=== PATIENT | female | born 1985 | race Caucasian/White ===

== ENCOUNTER 2018-05-26 15:19 | Outpatient (CLI) | payer OTHER ==
[~2018-05-26] VITALS: Ht 167.6 cm; Wt 65.9 kg
[2018-05-26 15:27] VITALS: BP 132/87
[2018-05-26] MEDS ORDERED: PREN1TAB60 PO (16:22)
[2018-05-26] MEDS ORDERED: RANI50VI PO (16:22)
== END 2018-05-26 17:20 | disposition home or self-care (01) ==
LOC: LDOP 15:19
PROVIDERS: ATTEND Obstetrics & Gynecology
DX: O26.893 Other specified pregnancy related conditions, third trimester (principal); R10.9 Unspecified abdominal pain; Z3A.34 34 weeks gestation of pregnancy
CPT/HCPCS: 59025; 99201; G0463

== ENCOUNTER 2018-06-17 06:08 | Observation (INO) | payer OTHER ==
[~2018-06-17] VITALS: Ht 167.6 cm; Wt 67.2 kg
[~2018-06-17 06:08] MED LIST: PREN1TAB60 PO; RANI50VI PO
[2018-06-17] MEDS ORDERED: TERBUTALINE 1 MG/ML, 1ML SQ ONE (06:30)
[2018-06-17 06:40] VITALS: BP 114/78
[2018-06-17 06:52] LABS: BASOPHILS # (AUTO) 0.03 x10^3/uL (0-0.1); BASOPHILS % (AUTO) 0 % (0-1); EOSINOPHILS # (AUTO) 0.17 x10^3/uL (0-0.4); EOSINOPHILS % (AUTO) 2 % (1-7); LYMPHOCYTES # (AUTO) 1.21 x10^3/uL (1-3.4); LYMPHOCYTES % (AUTO) 13 % (22-44); MD NO; MEAN CORPUSCULAR HEMOGLOBIN 32.4 pg (27.0-34.8); MEAN CORPUSCULAR HGB CONC 33.7 g/dL (32.4-35.8); MEAN CORPUSCULAR VOLUME 96.1 fL (80-100); MEAN PLATELET VOLUME 8.8 fL (7.4-10.4); MONOCYTES # (AUTO) 0.59 x10^3/uL (0.2-0.8); MONOCYTES % (AUTO) 6 % (2-9); NEUTROPHILS # (AUTO) 7.48 x10^3/uL (1.8-6.8); NEUTROPHILS % (AUTO) 79 % (42-75); PLATELET COUNT 262 x10^3/uL (130-400); RED BLOOD COUNT 3.88 x10^6/uL (3.82-5.3); RED CELL DISTRIBUTION WIDTH 12.9 % (9.6-15.2)
[2018-06-17] MEDS ORDERED: TERBUTALINE 1 MG/ML, 1ML ONE (07:07)
[2018-06-17] MEDS: LACTATED RINGERS 1,000 ML IV SCH ×2 (08:56→08:58)
== END 2018-06-17 08:45 | disposition home or self-care (01) ==
LOC: LDIP 06:08 → INTOOBSV 06:27 → UNDOADMOB 06:27
PROVIDERS: ADMIT Obstetrics & Gynecology Maternal & Fetal Medicine; ATTEND Obstetrics & Gynecology Maternal & Fetal Medicine
DX: O32.1XX0 Maternal care for breech presentation, not applicable or unspecified (principal); Z3A.37 37 weeks gestation of pregnancy
CPT/HCPCS: 36415; 59025; 59412; 85025; 86850; 86900; 96372; G0378; J3105; J7120; 96360; 96361

== ENCOUNTER 2018-06-30 05:36 | Inpatient (IN) | payer OTHER ==
[~2018-06-30] VITALS: Ht 167.6 cm; Wt 68.5 kg
[2018-06-30] MEDS ORDERED: SODIUM CITRATE/CITRIC ACID 15 ML UDC ONE (05:37)
[2018-06-30] MEDS ORDERED: NEWBORN KIT ONE (05:37)
[2018-06-30] MEDS ORDERED: METOCLOPRAMIDE 5 MG/ML, 2ML ONE (05:38)
[2018-06-30] MEDS ORDERED: OXYTOCIN 30U/ 0.9% NaCL 500ML 500 ML ONE (05:38)
[2018-06-30] MEDS ORDERED: SODIUM CITRATE/CITRIC ACID 15 ML UDC PO ONE (06:00)
[2018-06-30] MEDS ORDERED: METOCLOPRAMIDE 5 MG/ML, 2ML IV ONE (06:00)
[2018-06-30] MEDS ORDERED: LACTATED RINGERS 1,000 ML IVBOLUS ONE (06:00)
[2018-06-30 06:13] LABS: BASOPHILS # (AUTO) 0.04 x10^3/uL (0-0.1); BASOPHILS % (AUTO) 1 % (0-1); EOSINOPHILS # (AUTO) 0.13 x10^3/uL (0-0.4); EOSINOPHILS % (AUTO) 2 % (1-7); LYMPHOCYTES # (AUTO) 1.38 x10^3/uL (1-3.4); LYMPHOCYTES % (AUTO) 17 % (22-44); MD NO; MEAN CORPUSCULAR HEMOGLOBIN 33.5 pg (27.0-34.8); MEAN CORPUSCULAR HGB CONC 34.8 g/dL (32.4-35.8); MEAN CORPUSCULAR VOLUME 96.3 fL (80-100); MEAN PLATELET VOLUME 9.2 fL (7.4-10.4); MONOCYTES % (AUTO) 6 % (2-9); NEUTROPHILS # (AUTO) 6.07 x10^3/uL (1.8-6.8); NEUTROPHILS % (AUTO) 75 % (42-75); PLATELET COUNT 234 x10^3/uL (130-400); RED BLOOD COUNT 4.08 x10^6/uL (3.82-5.3); RED CELL DISTRIBUTION WIDTH 13.1 % (9.6-15.2)
[2018-06-30] MEDS ORDERED: HYDROmorphone 2 MG/ML, 1ML ONE ×4 (07:22→22:34)
[2018-06-30] MEDS ORDERED: CEFAZOLIN 1,000 MG ONE (07:22)
[2018-06-30] MEDS ORDERED: FENTANYL PF 100 MCG/2ML ONE (07:22)
[2018-06-30] MEDS ORDERED: ONDANSETRON 2MG/ML, 2ML ONE (07:22)
[2018-06-30] MEDS ORDERED: OXYTOCIN 10 UNITS/ML, 1ML ONE (07:22)
[2018-06-30] MEDS: LACTATED RINGERS 1,000 ML IV SCH ×6 (07:34→23:20)
[2018-06-30] MEDS ORDERED: OXYTOCIN 30U/ 0.9% NaCL 500ML 500 ML IV SCH (07:34)
[2018-06-30] MEDS ORDERED: METHYLERGONOVINE 0.2 MG/ML IM PRN (08:00)
[2018-06-30] MEDS ORDERED: IBUPROFEN 600 MG TABLET PO PRN (08:00)
[2018-06-30] MEDS ORDERED: OXYcodone/APAP 5/325MG TABLET PO PRN (08:00)
[2018-06-30] MEDS ORDERED: morphine SULFATE 10 MG/ML, 1ML IM PRN (08:00)
[2018-06-30] MEDS ORDERED: CARBOPROST TROMETHAMINE 250 MCG/ML, 1ML IM PRN (08:00)
[2018-06-30] MEDS ORDERED: ONDANSETRON 2MG/ML, 2ML IV PRN (08:00)
[2018-06-30] MEDS ORDERED: MISOPROSTOL 200 MCG TABLET PR PRN (08:00)
[2018-06-30] MEDS ORDERED: MORPHINE SULFATE 4 MG/ML, 1ML IVPush PRN ×2 (08:00→13:30)
[2018-06-30] MEDS ORDERED: MISOPROSTOL 200 MCG TABLET ONE (08:21)
[2018-06-30] MEDS: PRENATAL VIT/IRON/FA 1 EACH TABLET PO SCH (09:00)
[2018-06-30] MEDS: OXYTOCIN 30U/ 0.9% NaCL 500ML 500 ML IV SCH ×2 (10:26→19:20)
[2018-06-30] MEDS ORDERED: DIPH,PERTUSS(ACELL),TET VAC/PF NC IM-VACC PRN (10:30)
[2018-06-30] MEDS ORDERED: MEASLES,MUMPS&RUBELLA VACC/PF 0.5 ML SQ-VACC PRN (10:30)
[2018-06-30] MEDS ORDERED: ACETAMINOPHEN 325 MG TABLET PO PRN ×2 (10:30)
[2018-06-30 10:45] VITALS: BP 137/87
[2018-06-30] MEDS: OXYcodone/APAP 5/325MG TABLET PO PRN ×3 (11:29→20:48)
[2018-06-30] MEDS ORDERED: MORPHINE SULFATE 4 MG/ML, 1ML ONE (13:09)
[2018-06-30] MEDS: KETOROLAC 30 MG/1 ML IV PRN ×2 (14:41→20:48)
[2018-06-30 15:43] VITALS: BP 125/85
[2018-06-30] MEDS: HYDROmorphone 2 MG/ML, 1ML IVPush PRN ×4 (15:58→22:41)
[2018-06-30 16:10] LABS: BASOPHILS # (AUTO) 0.04 x10^3/uL (0-0.1); BASOPHILS % (AUTO) 0 % (0-1); EOSINOPHILS # (AUTO) 0.08 x10^3/uL (0-0.4); EOSINOPHILS % (AUTO) 1 % (1-7); LYMPHOCYTES # (AUTO) 1.01 x10^3/uL (1-3.4); LYMPHOCYTES % (AUTO) 10 % (22-44); MD NO; MEAN CORPUSCULAR HEMOGLOBIN 32.7 pg (27.0-34.8); MEAN CORPUSCULAR HGB CONC 33.9 g/dL (32.4-35.8); MEAN CORPUSCULAR VOLUME 96.3 fL (80-100); MEAN PLATELET VOLUME 9.4 fL (7.4-10.4); MONOCYTES # (AUTO) 0.43 x10^3/uL (0.2-0.8); MONOCYTES % (AUTO) 4 % (2-9); NEUTROPHILS # (AUTO) 8.92 x10^3/uL (1.8-6.8); NEUTROPHILS % (AUTO) 85 % (42-75); PLATELET COUNT 203 x10^3/uL (130-400); RED CELL DISTRIBUTION WIDTH 13.1 % (9.6-15.2)
[2018-06-30] MEDS: SIMETHICONE 80 MG CHEW TAB PO PRN (19:29)
[2018-06-30] MEDS: DOCUSATE 100 MG CAPSULE PO PRN (19:29)
[2018-06-30 20:00] VITALS: BP 117/80
[2018-06-30] MEDS ORDERED: OXYC-302 PO (21:08)
[2018-06-30] MEDS ORDERED: SENN-92 PO (21:10)
[2018-06-30] MEDS ORDERED: IBUP-1222 PO (21:10)
[2018-07-01] MEDS: OXYcodone/APAP 5/325MG TABLET PO PRN ×5 (00:27→21:25)
[2018-07-01 00:46] VITALS: BP 135/87
[2018-07-01] MEDS ORDERED: HYDROmorphone 2 MG/ML, 1ML ONE (01:26)
[2018-07-01] MEDS: HYDROmorphone 2 MG/ML, 1ML IVPush PRN ×3 (01:29→09:25)
[2018-07-01] MEDS: KETOROLAC 30 MG/1 ML IV PRN (02:42)
[2018-07-01 04:56] VITALS: BP 101/68
[2018-07-01] MEDS: OXYTOCIN 30U/ 0.9% NaCL 500ML 500 ML IV SCH ×2 (05:35→16:26)
[2018-07-01] MEDS: LACTATED RINGERS 1,000 ML IV SCH ×5 (05:35→23:34)
[2018-07-01 08:45] VITALS: BP 104/68
[2018-07-01] MEDS: DOCUSATE 100 MG CAPSULE PO PRN ×2 (08:45→21:25)
[2018-07-01] MEDS ORDERED: IBUPROFEN 600 MG TABLET ONE (08:51)
[2018-07-01] MEDS: PRENATAL VIT/IRON/FA 1 EACH TABLET PO SCH (09:00)
[2018-07-01] MEDS: IBUPROFEN 600 MG TABLET PO PRN ×2 (15:46→21:25)
[2018-07-01] MEDS ORDERED: IBUPROFEN 600 MG TABLET PO PRN (16:30)
[2018-07-01 20:00] VITALS: BP 119/81
[2018-07-01] MEDS: SIMETHICONE 80 MG CHEW TAB PO PRN (21:25)
[2018-07-02] MEDS: OXYcodone/APAP 5/325MG TABLET PO PRN ×4 (01:40→13:57)
[2018-07-02] MEDS: OXYTOCIN 30U/ 0.9% NaCL 500ML 500 ML IV SCH (02:26)
[2018-07-02] MEDS: IBUPROFEN 600 MG TABLET PO PRN ×2 (03:47→10:13)
[2018-07-02] MEDS: LACTATED RINGERS 1,000 ML IV SCH ×2 (07:34→09:34)
[2018-07-02 08:15] VITALS: BP 130/84
[2018-07-02] MEDS: PRENATAL VIT/IRON/FA 1 EACH TABLET PO SCH (09:00)
[2018-07-02] MEDS: DOCUSATE 100 MG CAPSULE PO PRN (10:13)
== END 2018-07-02 14:25 | disposition home or self-care (01) | DRG 788 ==
LOC: LDIP 05:36 → 2NW 10:31
PROVIDERS: ADMIT Obstetrics & Gynecology; ATTEND Obstetrics & Gynecology
PROC: 10D00Z1 Extraction of Products of Conception, Low, Open Approach (ICD-10-PCS; principal; 2018-06-30)
DX: O32.1XX0 Maternal care for breech presentation, not applicable or unspecified (principal); Z37.0 Single live birth; Z97.4 Presence of external hearing-aid; H90.5 Unspecified sensorineural hearing loss; O75.89 Other specified complications of labor and delivery; Z3A.39 39 weeks gestation of pregnancy; K08.109 Complete loss of teeth, unspecified cause, unspecified class; E25.0 Congenital adrenogenital disorders associated with enzyme deficiency; Z88.0 Allergy status to penicillin
CPT/HCPCS: 36415; 85025; 86762; 86850; 86900; G0378; J0690; J1170; J1885; J2405; J3010; J2590; J2765; J7120